=== PATIENT | female | born 1945 | race Caucasian/White ===

== ENCOUNTER 2019-09-05 01:05 | Inpatient (IN) | payer MEDICARE, MEDICAID ==
[2019-09-05] MEDS ORDERED: Ondansetron PF 4 MG/2 ML Vial ONE (03:33)
[2019-09-05] MEDS ORDERED: Piperacillin/Tazobactam 4.5 GM in Sodium Chloride 0.9% 100 ML IVPB SCH (06:15)
[2019-09-05] MEDS ORDERED: Vancomycin HCl 1 GM in Premix Bag 1 BAG IVPB SCH (06:15)
[2019-09-05] MEDS: Lactated Ringer's 1,000 ML IV SCH (06:20)
[2019-09-05 07:07] LABS: INR-International Normal Ratio 1.1; PTT 30.6 SEC (22.9-36.1); Prothrombin Time 13.9 SEC (12.0-14.7)
--- NOTE | 2019-09-05 07:55 | ULT ---
PRELIMINARY REPORT/[facility]/EMERGENCY AFTER HOURS PROCEDURE PROCEDURE INFORMATION: Exam: US Abdomen Limited, Right Upper Quadrant Exam date and time: 09/05/2019 2:08 AM Clinical history: 74 years old, female; Nausea and vomiting; Abdominal pain; Generalized TECHNIQUE: Imaging protocol: Real-time ultrasound of the abdomen with image documentation. Examination was focused on the right upper quadrant. COMPARISON: No relevant prior studies available. FINDINGS: Liver: Unremarkable liver, no focal abnormality. Gallbladder: Multiple shadowing gallstones within the gallbladder, including an 8 mm stone in the region of the gallbladder neck. Gallbladder is upper range of normal in size, with transverse diameter up to about 3.7 cm. No definite gallbladder wall thickening or pericholecystic fluid. Common bile duct: No biliary dilation, common duct measures 4.2 mm. Pancreas: Visible pancreas unremarkable. Much of the pancreas is obscured by bowel gas. Right kidney: Images of the right kidney show no hydronephrosis. IMPRESSION: 1. Cholelithiasis, see additional details above. 2. No biliary tree dilation. 3. Other findings discussed above. Thank you for allowing us to participate in the care of your patient. Dictated and Authenticated by: Joe Choudhury MD 09/05/2019 2:53 AM Central Time ([place] & [place]) FINAL REPORT EXAM: US Gallbladder RUQ CLINICAL HISTORY: Evaluate for cholecystitis.. COMPARISON: None. FINDINGS: Pancreas: Visualized pancreas has normal echotexture Liver:Normal echotexture Gallbladder: Sonographic evidence of cholelithiasis. No evidence of pericholecystic fluid. Gallbladde r wall is not thickened. Smith's sign:Negative Portal Vein: Patent. Appropriate directional flow Bile ducts: 0.4 cm Right kidney: No hydronephrosis. Right kidney measures 9.1 cm in length. IMPRESSION: This report is in agreement with the preliminary report by [facility]. Sonographic evidence of cholelithiasi s without sonographic evidence cholecystitis. HIDA scan if clinically warranted. Transcribed Date/Time: 09/05/2019 8:02 AM
[2019-09-05] MEDS ORDERED: Ondansetron PF 4 MG/2 ML Vial IVP PRN (08:38)
[2019-09-05] MEDS ORDERED: Acetaminophen 325 MG TAB PO PRN (08:38)
[2019-09-05] MEDS ORDERED: Ondansetron ODT 4 MG TAB PO PRN (08:38)
[2019-09-05] MEDS ORDERED: Bisacodyl 5 MG TAB PO PRN (08:38)
[2019-09-05] MEDS ORDERED: Calcium Carbonate 500 MG ChewTAB PO PRN (08:38)
[2019-09-05] MEDS ORDERED: Labetalol HCl 100 MG/20 ML VIAL SLOW IVP PRN (08:41)
[2019-09-05] MEDS ORDERED: Docusate 100 MG CAP PO PRN (08:41)
[2019-09-05] MEDS ORDERED: Benzonatate 100 MG CAP PO PRN (08:41)
--- NOTE | 2019-09-05 09:15 | RAD ---
SUPINE CHEST: HISTORY: Cough. COMPARISON: 09/04/2019 FINDINGS: Mild cardiomegaly. Streaky atelectasis and/or infiltrate in the left lung base is noted. POS: OFF
[2019-09-05] MEDS ORDERED: Diazepam 5 MG TAB PO SCH (09:32)
[2019-09-05] MEDS: Loratadine 10 MG TAB PO SCH (09:59)
[2019-09-05] MEDS: Divalproex Sodium 250 MG (DR) TAB PO SCH ×3 (09:59→20:19)
[2019-09-05] MEDS: Aspirin 81 mg Enteric Coated Tablet PO SCH (09:59)
[2019-09-05] MEDS: Lisinopril 20 MG TAB PO SCH (09:59)
[2019-09-05] MEDS: Citalopram 20 MG TAB PO SCH (10:00)
[2019-09-05] MEDS: Amlodipine 5 MG TAB PO SCH (10:00)
[2019-09-05] MEDS: Famotidine 20 MG TAB PO SCH ×2 (10:00→20:20)
[2019-09-05] MEDS: Multivit, Therapeutic 1 TAB PO SCH (10:00)
[2019-09-05] MEDS: Heparin 5,000 UNITS/ML VIAL SC SCH ×3 (10:01→20:20)
[2019-09-05] MEDS: Vancomycin HCl 1 GM in Premix Bag 1 BAG IVPB SCH ×2 (12:29→23:05)
[2019-09-05] MEDS: Piperacillin/Tazobactam 3.375 GM in Sodium Chloride 0.9% 100 ML IVPB SCH ×2 (12:30→18:41)
[2019-09-05] MEDS: Fluticasone Propionate Nasal Spray 16 gm Bottle NASAL SCH ×2 (12:31→20:20)
--- NOTE | 2019-09-05 15:56 | PDOC.HHP ---
Hospitalist HPI - History of Present Illness Fever and vomiting History of Present Illness: 74-year-old female with past medical history of advanced dementia, Parkinson's, seizure disorder, hypertension, and hyperlipidemia who is a chronic resident of nursing facility was transferred for fever and vomiting. I find the patient in the medical unit on the morning of 09/05/2019 she is resting in bed breathing comfortably in no acute distress. Patient is able to tell me her name and she knows she is in the state of [place], besides that patient cannot give much accurate history. She states that she was feeling a little upset to her stomach and she was vomiting though she does not recall how many times she was vomiting. Patient denies abdominal pain. Patient denies abdominal pain with fatty meals. Patient was reported of having fever though she does not remember this. Patient does not know the year. Patient does not know how many children she has, though she tells me she believes she has three sons. Patient has listed as a medical power of attorney general being Miss Santana who can be reached at [phone] I have called this number twice and left two voicemails. I will try again tomorrow to make contact with power of attorney general. The patient was found have cholelithiasis though there is no signs of acute cholecystitis. The emergency department physician believes that the patient needed a HIDA scan for cholelithiasis. I do not believe that these are related. The patient has a normal bilirubin, there are no signs of obstructive jaundice. Patient with a CT scan of the abdomen that does not have any acute abdominal pathology. Again there is noted cholelithiasis though there is no signs of acute cholecystitis. There is also diverticulosis without any signs of acute diverticulitis. The patient was found have an elevated WBC count of 17,000. There has been no documented fever while in acute care hospital. The patient wit chest x-ray does demonstrate left-sided infiltrate in this may be a possible source of infection. Patient started on broad-spectrum antibiotics with coverage for healthcare associated pneumonia. UA does not demonstrate any infection. Again I will reach out to power of attorney general tomorrow and try to determine power of attorney general's care in addition to categorization status. Hospitalist ROS - Review of Systems All other systems reviewed; all pertinent +/- noted in HPI/Subj - Medication Medications: Active Medications Generic Name Dose Route Start Last Admin Trade Name Freq PRN Reason Stop Dose Admin Amlodipine Besylate 5 mg 09/05/19 09:00 09/05/19 10:00 Norvasc PO 5 mg DAILY PRACHI Administration Aspirin 81 mg 09/05/19 09:00 09/05/19 09:59 Ecotrin PO 81 mg DAILY PRACHI Administration Citalopram Hydrobromide 20 mg 09/05/19 09:00 09/05/19 10:00 Celexa PO 20 mg DAILY PRACHI Administration Diazepam 5 mg 09/05/19 09:32 09/05/19 12:30 Valium PO 09/05/19 18:00 5 mg WILLCALL PRACHI Administration Divalproex Sodium 125 mg 09/05/19 09:00 09/05/19 09:59 Depakote PO 125 mg TID PRACHI Administration Famotidine 20 mg 09/05/19 09:00 09/05/19 10:00 Pepcid PO 20 mg BID PRACHI Administration Fluticasone Propionate 0 gm 09/05/19 09:00 09/05/19 12:31 Flonase Nasal [place] NASAL 1 spr BID PRACHI Administration Heparin Sodium (Porcine) 5,000 units 09/05/19 09:00 09/05/19 10:01 Heparin SC Not Given TID PRACHI Lactated Ringer's 1,000 mls @ 50 mls/hr 09/05/19 06:15 09/05/19 06:20 Lactated Ringer's IV 1,000 mls .Q20H PRACHI Administration Piperacillin Sod/Tazobactam 100 mls @ 200 mls/hr 09/05/19 12:00 09/05/19 12: 30 Sod 3.375 gm/ Sodium Chloride IVPB 100 mls Q6HR PRACHI Administration Vancomycin HCl 1 gm/ Device 200 mls @ 200 mls/hr 09/05/19 11:00 09/05/19 12: 29 IVPB 200 mls 1100,2300 PRACHI Administration Lisinopril 20 mg 09/05/19 09:00 09/05/19 09:59 Zestril PO 20 mg DAILY PRACHI Administration Loratadine 10 mg 09/05/19 09:00 09/05/19 09:59 Claritin PO 10 mg DAILY PRACHI Administration Memantine 10 mg 09/05/19 09:00 09/05/19 10:00 Namenda PO 10 mg BID PRACHI Administration Multivitamins 1 tab 09/05/19 09:00 09/05/19 10:00 Theragran PO 1 tab DAILY PRACHI Administration Hospitalist History - Past Medical History Source: patient Cardiac: reports: HTN, Hyperlipidemia [employer]TERN [employer]PERVISOR: reports: Dementia, Seizure, Other (parkinsons) - Past Surgical History Past Surgical History: reports: Other - Family History Family History: reports: Other - Social History Smoking Status: Unknown if ever smoked Alcohol: reports: None Drugs: reports: none Living Situation: Residential - Exam General Appearance: NAD, awake alert Eye: PERRL, anicteric sclera ENT: normocephalic atraumatic, moist mucosa Neck: supple, symmetric, no lymphadenopathy Heart: no murmur, no gallops, no rubs Respiratory: no rales, normal chest expansion, no tachypnea, rhonchi, wheezes Gastrointestinal: soft, non-tender, non-distended, normal bowel sounds, no guarding, no rigidity Extremities: no edema Skin: no lesions, no rashes Neurological: cranial nerve grossly intact, normal sensation to touch, no focal deficits Musculoskeletal: generalized weakness Psychiatric: oriented to person, flat affect. negative: oriented to place, oriented to time Hospitalist Results - Radiology Interpretation CT scan - abdomen Status: image reviewed by ak Hospitalist H&P A/P - Problem (1) Sepsis Code(s): A41.9 - SEPSIS, UNSPECIFIED ORGANISM Status: Acute (2) Pneumonia Code(s): J18.9 - PNEUMONIA, UNSPECIFIED ORGANISM Status: Acute (3) Cholelithiasis Code(s): K80.20 - CALCULUS OF GALLBLADDER W/O CHOLECYSTITIS W/O OBSTRUCTION Status: Acute (4) Dementia Code(s): F03.90 - UNSPECIFIED DEMENTIA WITHOUT BEHAVIORAL DISTURBANCE Status: Acute (5) Parkinsons disease Code(s): G20 - PARKINSON'S DISEASE Status: Acute (6) HTN (hypertension) Code(s): I10 - ESSENTIAL (PRIMARY) HYPERTENSION Status: Acute (7) HLD (hyperlipidemia) Code(s): E78.5 - HYPERLIPIDEMIA, UNSPECIFIED Status: Acute (8) Vomiting Code(s): R11.10 - VOMITING, UNSPECIFIED Status: Acute - Plan Plan: Plan: Admit to medical unit start on broad-spectrum IV antibiotics for sepsis coverage for healthcare associated organisms as the patient is a resident of nursing facility concern for healthcare associated pneumonia CT scan of the abdomen with cholelithiasis however there are no signs of acute cholecystitis HIDA scan was ordered by the emergency department physician Bilirubin normal, no signs of obstructive jaundice nausea and vomiting has resolved chest x-ray with infiltrates resume home medications as able blood pressure control blood sugar control Called POA Mrs Santana twice at [phone], two voicemail were left. Will call again tomorrow for further goals of care and code status.
--- NOTE | 2019-09-05 16:38 | NM ---
Exam: Nuclear medicine HIDA scan HISTORY: Suspected cholecystitis. Comparison: None Patient was pretreated with 1.6 mcg CCK which was administered 30 minutes prior to injection of radio pharmaceutical. The 20 minute infusion of 1.6 mcg CCK diluted to 20 mL administered 1 hour post injection of radiopharmaceutical to determine EF. HIDA scan was performed after the patient administe red 4.9 mm of technetium 99m mebrofenin FINDINGS: There is appropriate uptake of the radiotracer by the hepatic parenchyma. There is passage of radiotracer from the common bile duct into multiple small bowel loops. Localization radiotracer in the gallbladder is noted as early as 10 minutes. Ejection fraction: 50% IMPRESSION: 1. No scintigraphic evidence of acute cholecystitis 2. 50% ejection fraction Transcribed Date/Time: 09/05/2019 4:45 PM
[2019-09-05] MEDS: Rivastigmine 1.5 MG CAP PO SCH (17:28)
[2019-09-05] MEDS: Mirtazapine 15 MG TAB PO SCH (20:20)
[2019-09-06] MEDS: Piperacillin/Tazobactam 3.375 GM in Sodium Chloride 0.9% 100 ML IVPB SCH ×5 (00:27→22:52)
[2019-09-06] MEDS: Levothyroxine Sodium 25 MCG TAB PO SCH (05:41)
[2019-09-06] MEDS: Lactated Ringer's 1,000 ML IV SCH ×2 (05:42→17:41)
[2019-09-06 05:44] LABS: #Eosinphils 0.3 thou/uL (0.0-0.7); #Lymphocytes 1.1 thou/uL (1.20-3.40); #Monocytes 0.6 thou/uL (0.11-0.59); #Neutrophils 3.5 thou/uL (1.40-6.50); %Basophils 0.4 % (0.0-1.0); %Eosinophils 4.8 % (0.0-10.0); %Lymphocytes 20.4 % (21.0-51.0); %Monocytes 10.6 % (0.0-10.0); %Neutrophils 63.9 % (42.0-75.0); Hemoglobin 11.5 g/dL (12.0-16.0); Mean Corpuscular HGB CONC 33.4 g/dL (32.0-36.0); Mean Corpuscular Hemoglobin 32.3 pg (27.0-31.0); Mean Corpuscular Volume 96.7 fL (78.0-98.0); Mean Platelet Volume 7.8 fL (7.4-10.4); Platelet Count 196 thou/uL (130-400); RBC Distribution Width 11.8 % (11.5-14.5); Red Blood Cell (RBC) Count 3.57 mill/uL (4.20-5.40); White Blood Cell (WBC) Count 5.5 thou/uL (4.8-10.8)
[2019-09-06 06:50] LABS: Anion Gap 11 mmol/L (10-20); BUN (Urea Nitrogen) 11 mg/dL (9.8-20.1); Calc. Creatinine Clearance 83 mL/min (70-130); Calcium 8.4 mg/dL (7.8-10.44); Carbon Dioxide 23 mmol/L (23-31); Chloride 113 mmol/L (98-107); Estimated GFR-MDRD 78; Glucose 92 mg/dL (83-110); Potassium 3.6 mmol/L (3.5-5.1); Sodium 143 mmol/L (136-145)
[2019-09-06] MEDS: Loratadine 10 MG TAB PO SCH (10:09)
[2019-09-06] MEDS: Rivastigmine 1.5 MG CAP PO SCH ×2 (10:09→17:37)
[2019-09-06] MEDS: Lisinopril 20 MG TAB PO SCH (10:09)
[2019-09-06] MEDS: Fluticasone Propionate Nasal Spray 16 gm Bottle NASAL SCH ×2 (10:10→20:02)
[2019-09-06] MEDS: Multivit, Therapeutic 1 TAB PO SCH (10:10)
[2019-09-06] MEDS: Amlodipine 5 MG TAB PO SCH (10:15)
[2019-09-06] MEDS: Aspirin 81 mg Enteric Coated Tablet PO SCH (10:16)
[2019-09-06] MEDS: Divalproex Sodium 250 MG (DR) TAB PO SCH ×3 (10:16→20:01)
[2019-09-06] MEDS: Citalopram 20 MG TAB PO SCH (10:19)
[2019-09-06] MEDS: Heparin 5,000 UNITS/ML VIAL SC SCH ×3 (10:19→20:01)
[2019-09-06 10:27] LABS: Vancomycin, Trough 14.1 ug/mL
[2019-09-06] MEDS ORDERED: Prevnar 13-Val Conj/PF 0.5 ML SYRINGE IM ONE (10:45)
[2019-09-06] MEDS: Famotidine 20 MG TAB PO SCH ×2 (11:13→20:01)
[2019-09-06 11:50] LABS: Bilirubin Negative (Negative); Blood, Urine 1+ (Negative); Clarity Clear (Clear); Glucose, Urine (Dipstick) Normal (Negative); Leukocyte Negative Leu/uL (Negative); Nitrite Negative (Negative); Protein, Urine (Dipstick) Negative (Neg-Trace); RBC/HPF 21-50 HPF (0-3); Urobilinogen Normal mg/dL (Less than 2)
[2019-09-06 11:55] LABS: Bacteria/HPF 1+ HPF (None Seen)
[2019-09-06 11:57] LABS: Urine Culture Reflex No No
[2019-09-06] MEDS: Vancomycin HCl 1.25 GM in Sodium Chloride 0.9% 250 ML 250 ML IVPB SCH ×2 (12:39→22:53)
--- NOTE | 2019-09-06 12:40 | MRI ---
MRI BRAIN WITHOUT CONTRAST: HISTORY: Weakness COMPARISON: None CORRELATION: CT scan from 09/04/2019. FINDINGS: No restricted diffusion is seen. There are few foci of T2 prolongation in the periventricular white m atter, consistent with chronic small vessel ischemic disease. The ventricular size is appropriate and the basilar cisterns are patent. There is cortical atrophy. No evidence of acute infarct, hemorrhage, midline shift or abnormal extra-axial fluid collections is seen. The visualized paranasal sinuses and mastoid air cells are well-aerated. IMPRESSION: No evidence of acute intracranial process.
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
--- NOTE | 2019-09-06 13:43 | PDOC.HOSPP ---
- Subjective Subjective: Clinically unchanged. Nausea and vomiting has resolved is the patient has NPO status. HIDA scan found to be negative. Responding to broad-spectrum IV antibiotics. Discuss case at length with patient's power of finance attorney Esther over the phone who states that she has been concerned over Jillian's decline of the past several months. Decrease mental status capacity to the point where occasionally that he does not recognize Esther. Decrease mental capacity to the point where sometimes she is staring off into space. Jillian has been having worsening ability to swallow over the past several months per Esther and occasionaly coughing with food or drink. Esther also states that Jillian's weakness has been worsening of the past several months to the point where now she is primarily wheelchair-bound. Will order MRI the brain to evaluate for CVA acute versus chronic. Neurology consultation requested for further recommendations. Speech therapy consultation requested for swallow eval, may need to modify diet with thickened liquids versus aspiration precautions. - Objective Vital Signs & Weight: Vital Signs (12 hours) Temp Pulse Resp BP BP Pulse Ox 09/06/19 10:15 58 L 127/73 09/06/19 10:09 127/73 09/06/19 08:00 97.8 F 59 L 18 127/73 92 L 09/06/19 04:29 97.8 F 46 L 16 100/55 L 96 Weight Admit Weight 175 lb 0.752 oz Weight 175 lb 0.752 oz Result Diagrams: 09/06/19 04:59 09/06/19 06:20 Radiology Reviewed by me: Yes (KASSANDRA) Hospitalist ROS - Review of Systems All other systems reviewed; all pertinent +/- noted in HPI/Subj - Medication Medications: Active Medications Generic Name Dose Route Start Last Admin Trade Name Freq PRN Reason Stop Dose Admin Amlodipine Besylate 5 mg 09/05/19 09:00 09/06/19 10:15 Norvasc PO 5 mg DAILY PRACHI Administration Aspirin 81 mg 09/05/19 09:00 09/06/19 10:16 Ecotrin PO 81 mg DAILY PRACHI Administration Citalopram Hydrobromide 20 mg 09/05/19 09:00 09/06/19 10:19 Celexa PO 20 mg DAILY PRACHI Administration Divalproex Sodium 125 mg 09/05/19 09:00 09/06/19 10:16 Depakote PO 125 mg TID PRACHI Administration Famotidine 20 mg 09/05/19 09:00 09/06/19 11:13 Pepcid PO Not Given BID PRACHI Fluticasone Propionate 0 gm 09/05/19 09:00 09/06/19 10:10 Flonase Nasal [place] NASAL 1 spr BID PRACHI Administration Heparin Sodium (Porcine) 5,000 units 09/05/19 09:00 09/06/19 10:19 Heparin SC 5,000 units TID PRACHI Administration Lactated Ringer's 1,000 mls @ 50 mls/hr 09/05/19 06:15 09/06/19 05:42 Lactated Ringer's IV Not Given .Q20H PRACHI Piperacillin Sod/Tazobactam 100 mls @ 200 mls/hr 09/05/19 12:00 09/06/19 12: 52 Sod 3.375 gm/ Sodium Chloride IVPB 100 mls Q6HR PRACHI Administration Vancomycin HCl 1.25 gm/ Sodium 250 mls @ 166.667 mls/hr 09/06/19 11:00 12:39 Chloride IVPB 250 mls 1100,2300 PRACHI Administration Levothyroxine Sodium 12.5 mcg 09/06/19 06:00 09/06/19 05:41 Synthroid PO 12.5 mcg 0600 PRACHI Administration Lisinopril 20 mg 09/05/19 09:00 09/06/19 10:09 Zestril PO 20 mg DAILY PRACHI Administration Loratadine 10 mg 09/05/19 09:00 09/06/19 10:09 Claritin PO 10 mg DAILY PRACHI Administration Memantine 10 mg 09/05/19 09:00 09/06/19 10:09 Namenda PO 10 mg BID PRACHI Administration Mirtazapine 15 mg 09/05/19 21:00 09/05/19 20:20 Remeron PO 15 mg HS PRACHI Administration Multivitamins 1 tab 09/05/19 09:00 09/06/19 10:10 Theragran PO 1 tab DAILY PRACHI Administration Rivastigmine 6 mg 09/05/19 17:00 09/06/19 10:09 Exelon PO 6 mg BID-WM PRACHI Administration - Exam General Appearance: NAD, awake alert Eye: PERRL ENT: normocephalic atraumatic, moist mucosa Neck: supple, symmetric, no lymphadenopathy Heart: no murmur, no gallops, no rubs Respiratory: no rales, normal chest expansion, no tachypnea, rhonchi, wheezes Gastrointestinal: soft, non-tender, non-distended, normal bowel sounds, no guarding, no rigidity Extremities: no edema Skin: no lesions, no rashes Neurological: cranial nerve grossly intact, no weakness Musculoskeletal: generalized weakness Psychiatric: A&O x 3 Hosp A/P (1) Sepsis Code(s): A41.9 - SEPSIS, UNSPECIFIED ORGANISM Status: Acute (2) Pneumonia Code(s): J18.9 - PNEUMONIA, UNSPECIFIED ORGANISM Status: Acute (3) Cholelithiasis Code(s): K80.20 - CALCULUS OF GALLBLADDER W/O CHOLECYSTITIS W/O OBSTRUCTION Status: Acute (4) Dementia Code(s): F03.90 - UNSPECIFIED DEMENTIA WITHOUT BEHAVIORAL DISTURBANCE Status: Acute (5) Parkinsons disease Code(s): G20 - PARKINSON'S DISEASE Status: Acute (6) HTN (hypertension) Code(s): I10 - ESSENTIAL (PRIMARY) HYPERTENSION Status: Acute (7) HLD (hyperlipidemia) Code(s): E78.5 - HYPERLIPIDEMIA, UNSPECIFIED Status: Acute (8) Vomiting Code(s): R11.10 - VOMITING, UNSPECIFIED Status: Acute - Plan Plan: medical unit neurology consultation, recommendations appreciated MRI the brain reviewed, no acute intracranial process clinical diagnosis of Parkinson's disease per neurology start Sinemet per neurology concerning patient's cholelithiasis there is no signs suggestive of cholecystitis and HIDA scan has been negative, no further workup needed at this time speech therapy consultation, recommendations appreciated patient's diet may require modifications with aspiration precautions versus thickening to limit future episodes of aspiration continue broad-spectrum IV antibiotics, de-escalate to culture and sensitivity as able Blood cultures UA/ culture pending symptomatic therapy for nausea and vomiting chest x-ray with infiltrates resume home medications as able blood pressure control blood sugar control discussed case with power of finance attorney Ms. Santana at [phone] who states patient is a DNAR/ DNI - we will honor their wishes
[2019-09-06] MEDS: Carbidopa/Levodopa 25-100 mg Tablet PO SCH ×3 (14:43→18:27)
[2019-09-06] MEDS: diphenhydrAMINE 25 MG CAP PO PRN (20:01)
[2019-09-06] MEDS: Mirtazapine 15 MG TAB PO SCH (20:01)
[2019-09-07] MEDS: Carbidopa/Levodopa 25-100 mg Tablet PO SCH ×4 (06:09→18:20)
[2019-09-07] MEDS: Piperacillin/Tazobactam 3.375 GM in Sodium Chloride 0.9% 100 ML IVPB SCH ×4 (06:09→22:46)
[2019-09-07] MEDS: Levothyroxine Sodium 25 MCG TAB PO SCH (06:09)
[2019-09-07] MEDS: Aspirin 81 mg Enteric Coated Tablet PO SCH (09:08)
[2019-09-07] MEDS: Citalopram 20 MG TAB PO SCH (09:09)
[2019-09-07] MEDS: Multivit, Therapeutic 1 TAB PO SCH (09:09)
[2019-09-07] MEDS: Divalproex Sodium 250 MG (DR) TAB PO SCH ×3 (09:09→19:36)
[2019-09-07] MEDS: Loratadine 10 MG TAB PO SCH (09:09)
[2019-09-07] MEDS: Lisinopril 20 MG TAB PO SCH (09:11)
[2019-09-07] MEDS: Amlodipine 5 MG TAB PO SCH (09:11)
[2019-09-07] MEDS: Famotidine 20 MG TAB PO SCH ×2 (09:11→19:36)
[2019-09-07] MEDS: Heparin 5,000 UNITS/ML VIAL SC SCH ×3 (09:12→19:13)
[2019-09-07] MEDS: Fluticasone Propionate Nasal Spray 16 gm Bottle NASAL SCH ×2 (09:14→19:36)
[2019-09-07] MEDS: Rivastigmine 1.5 MG CAP PO SCH ×2 (09:14→18:20)
[2019-09-07] MEDS: Vancomycin HCl 1.25 GM in Sodium Chloride 0.9% 250 ML 250 ML IVPB SCH ×2 (10:58→22:46)
[2019-09-07] MEDS: Lactated Ringer's 1,000 ML IV SCH (18:27)
[2019-09-07] MEDS: diphenhydrAMINE 25 MG CAP PO PRN (19:35)
[2019-09-07] MEDS: Mirtazapine 15 MG TAB PO SCH (19:36)
[2019-09-07] MEDS: Melatonin 3 MG TAB PO PRN (19:36)
[2019-09-07 22:28] LABS: Vancomycin, Trough 17.9 ug/mL
--- NOTE | 2019-09-07 22:52 | PDOC.HOSPP ---
- Subjective Subjective: Denies problems. Nursing indicate she has been trying to get up out of bed at times. - Objective Vital Signs & Weight: Vital Signs (12 hours) Temp Pulse Resp BP Pulse Ox 09/07/19 20:00 97.4 F L 77 18 158/86 H 96 09/07/19 16:14 98.2 F 66 18 171/92 H 96 09/07/19 11:03 98.4 F 74 18 159/87 H 98 Weight Admit Weight 175 lb 0.752 oz Weight 175 lb 0.752 oz I&O: 09/06/19 09/07/19 09/08/19 06:59 06:59 06:59 Intake Total 1400 Output Total 3 Balance 1397 Result Diagrams: 09/06/19 04:59 09/06/19 06:20 Hospitalist ROS - Medication Medications: Active Medications Generic Name Dose Route Start Last Admin Trade Name Freq PRN Reason Stop Dose Admin Amlodipine Besylate 5 mg 09/05/19 09:00 09/07/19 09:11 Norvasc PO 5 mg DAILY PRACHI Administration Aspirin 81 mg 09/05/19 09:00 09/07/19 09:08 Ecotrin PO 81 mg DAILY PRACHI Administration Carbidopa/Levodopa 1 tab 09/06/19 11:00 09/07/19 18:20 Sinemet 25-100 PO 1 tab 0700,1100,1500,1900 PRACHI Administration Citalopram Hydrobromide 20 mg 09/05/19 09:00 09/07/19 09:09 Celexa PO 20 mg DAILY PRACHI Administration Diphenhydramine HCl 25 mg 09/05/19 08:41 09/07/19 19:35 Benadryl PO 25 mg Q6H PRN Administration Itching & Insomnia Divalproex Sodium 125 mg 09/05/19 09:00 09/07/19 19:36 Depakote PO 125 mg TID PRACHI Administration Famotidine 20 mg 09/05/19 09:00 09/07/19 19:36 Pepcid PO 20 mg BID PRACHI Administration Fluticasone Propionate 0 gm 09/05/19 09:00 09/07/19 19:36 Flonase Nasal [place] NASAL Not Given BID PRACHI Heparin Sodium (Porcine) 5,000 units 09/05/19 09:00 09/07/19 19:13 Heparin SC Not Given TID PRACHI Lactated Ringer's 1,000 mls @ 50 mls/hr 09/05/19 06:15 09/07/19 18:27 Lactated Ringer's IV Not Given .Q20H PRACHI Piperacillin Sod/Tazobactam 100 mls @ 200 mls/hr 09/05/19 12:00 09/07/19 22: 46 Sod 3.375 gm/ Sodium Chloride IVPB 100 mls Q6HR PRACHI Administration Vancomycin HCl 1.25 gm/ Sodium 250 mls @ 166.667 mls/hr 09/06/19 11:00 22:46 Chloride IVPB 250 mls 1100,2300 PRACHI Administration Levothyroxine Sodium 12.5 mcg 09/06/19 06:00 09/07/19 06:09 Synthroid PO 12.5 mcg 0600 PRACHI Administration Lisinopril 20 mg 09/05/19 09:00 09/07/19 09:11 Zestril PO 20 mg DAILY PRACHI Administration Loratadine 10 mg 09/05/19 09:00 09/07/19 09:09 Claritin PO 10 mg DAILY PRACHI Administration Melatonin 3 mg 09/05/19 08:41 09/07/19 19:36 Melatonin PO 3 mg HS PRN Administration Insomnia Memantine 10 mg 09/05/19 09:00 09/07/19 19:36 Namenda PO 10 mg BID PRACHI Administration Mirtazapine 15 mg 09/05/19 21:00 09/07/19 19:36 Remeron PO 15 mg HS PRACHI Administration Multivitamins 1 tab 09/05/19 09:00 09/07/19 09:09 Theragran PO 1 tab DAILY PRACHI Administration Rivastigmine 6 mg 09/05/19 17:00 09/07/19 18:20 Exelon PO 6 mg BID-WM PRACHI Administration - Exam General Appearance: NAD, awake alert Heart: RRR, no murmur, no gallops, no rubs, normal peripheral pulses Respiratory: CTAB, no wheezes, no rales, no ronchi, normal chest expansion, no tachypnea, normal percussion Gastrointestinal: soft, non-tender, non-distended, normal bowel sounds, no palpable masses, no hepatomegaly, no splenomegaly, no bruit Extremities: no cyanosis, no clubbing, no edema Neurological: no focal deficits Musculoskeletal: normal tone Psychiatric - other findings: FLat affect. Hosp A/P (1) Dementia Code(s): F03.90 - UNSPECIFIED DEMENTIA WITHOUT BEHAVIORAL DISTURBANCE Status: Acute (2) HLD (hyperlipidemia) Code(s): E78.5 - HYPERLIPIDEMIA, UNSPECIFIED Status: Acute (3) HTN (hypertension) Code(s): I10 - ESSENTIAL (PRIMARY) HYPERTENSION Status: Acute (4) Parkinsons disease Code(s): G20 - PARKINSON'S DISEASE Status: Acute (5) Pneumonia Code(s): J18.9 - PNEUMONIA, UNSPECIFIED ORGANISM Status: Acute (6) Cholelithiasis Code(s): K80.20 - CALCULUS OF GALLBLADDER W/O CHOLECYSTITIS W/O OBSTRUCTION Status: Acute (7) Sepsis Code(s): A41.9 - SEPSIS, UNSPECIFIED ORGANISM Status: Acute (8) Vomiting Code(s): R11.10 - VOMITING, UNSPECIFIED Status: Acute - Plan GB work up negative. Continue IV abx for pneumonia. Seems to be doing well with the Sinemet. Anticipate transition to po and discharge tomorrow.
[2019-09-08] MEDS: Piperacillin/Tazobactam 3.375 GM in Sodium Chloride 0.9% 100 ML IVPB SCH (05:08)
[2019-09-08] MEDS: Carbidopa/Levodopa 25-100 mg Tablet PO SCH ×4 (05:08→18:09)
[2019-09-08] MEDS: Levothyroxine Sodium 25 MCG TAB PO SCH (05:08)
[2019-09-08] MEDS: Lisinopril 20 MG TAB PO SCH (10:23)
[2019-09-08] MEDS: Amlodipine 5 MG TAB PO SCH (10:24)
[2019-09-08] MEDS: Aspirin 81 mg Enteric Coated Tablet PO SCH (10:24)
[2019-09-08] MEDS: Divalproex Sodium 250 MG (DR) TAB PO SCH ×3 (10:24→20:01)
[2019-09-08] MEDS: Multivit, Therapeutic 1 TAB PO SCH (10:24)
[2019-09-08] MEDS: Loratadine 10 MG TAB PO SCH (10:24)
[2019-09-08] MEDS: Heparin 5,000 UNITS/ML VIAL SC SCH ×3 (10:25→19:19)
[2019-09-08] MEDS: Famotidine 20 MG TAB PO SCH ×2 (10:25→20:01)
[2019-09-08] MEDS: Fluticasone Propionate Nasal Spray 16 gm Bottle NASAL SCH ×2 (10:26→19:43)
[2019-09-08] MEDS: Rivastigmine 1.5 MG CAP PO SCH ×2 (10:28→18:09)
[2019-09-08] MEDS: Citalopram 20 MG TAB PO SCH (11:37)
[2019-09-08] MEDS: Lactated Ringer's 1,000 ML IV SCH (15:23)
--- NOTE | 2019-09-08 15:51 | PDOC.HOSPP ---
- Subjective Subjective: Sleepy today. Apparently had some benadryl last night. Has been getting out of bed. Walked to the bathroom. - Objective Vital Signs & Weight: Vital Signs (12 hours) Temp Pulse Resp BP BP Pulse Ox 09/08/19 10:24 70 176/93 H 09/08/19 10:23 176/93 H 09/08/19 08:00 97.9 F 70 16 176/93 H 94 L Weight Admit Weight 175 lb 0.752 oz Weight 175 lb 0.752 oz I&O: 09/07/19 09/08/19 09/09/19 06:59 06:59 05:59 Intake Total 1400 Output Total 3 Balance 1397 Result Diagrams: 09/06/19 04:59 09/06/19 06:20 Hospitalist ROS - Medication Medications: Active Medications Generic Name Dose Route Start Last Admin Trade Name Freq PRN Reason Stop Dose Admin Amlodipine Besylate 5 mg 09/05/19 09:00 09/08/19 10:24 Norvasc PO 5 mg DAILY PRACHI Administration Aspirin 81 mg 09/05/19 09:00 09/08/19 10:24 Ecotrin PO 81 mg DAILY PRACHI Administration Carbidopa/Levodopa 1 tab 09/06/19 11:00 09/08/19 15:12 Sinemet 25-100 PO 1 tab 0700,1100,1500,1900 PRACHI Administration Diphenhydramine HCl 25 mg 09/05/19 08:41 09/07/19 19:35 Benadryl PO 25 mg Q6H PRN Administration Itching & Insomnia Divalproex Sodium 125 mg 09/05/19 09:00 09/08/19 15:11 Depakote PO 125 mg TID PRACHI Administration Famotidine 20 mg 09/05/19 09:00 09/08/19 10:25 Pepcid PO 20 mg BID PRACHI Administration Fluticasone Propionate 0 gm 09/05/19 09:00 09/08/19 10:26 Flonase Nasal [place] NASAL 1 spr BID PRACHI Administration Heparin Sodium (Porcine) 5,000 units 09/05/19 09:00 09/08/19 15:15 Heparin SC 5,000 units TID PRACHI Administration Lactated Ringer's 1,000 mls @ 50 mls/hr 09/05/19 06:15 09/08/19 15:23 Lactated Ringer's IV 1,000 mls .Q20H PRACHI Administration Levothyroxine Sodium 12.5 mcg 09/06/19 06:00 09/08/19 05:08 Synthroid PO 12.5 mcg 0600 PRACHI Administration Lisinopril 20 mg 09/05/19 09:00 09/08/19 10:23 Zestril PO 20 mg DAILY PRACHI Administration Loratadine 10 mg 09/05/19 09:00 09/08/19 10:24 Claritin PO 10 mg DAILY PRACHI Administration Melatonin 3 mg 09/05/19 08:41 09/07/19 19:36 Melatonin PO 3 mg HS PRN Administration Insomnia Memantine 10 mg 09/05/19 09:00 09/08/19 10:24 Namenda PO 10 mg BID PRACHI Administration Mirtazapine 15 mg 09/05/19 21:00 09/07/19 19:36 Remeron PO 15 mg HS PRACHI Administration Multivitamins 1 tab 09/05/19 09:00 09/08/19 10:24 Theragran PO 1 tab DAILY PRACHI Administration Rivastigmine 6 mg 09/05/19 17:00 09/08/19 10:28 Exelon PO 6 mg BID-WM PRACHI Administration - Exam General Appearance: NAD General - other findings: Sleepy. Awakens. Denies problems. Heart: RRR, no gallops, no rubs, normal peripheral pulses, II/IV Respiratory: CTAB, no wheezes, no rales, no ronchi, normal chest expansion, no tachypnea, normal percussion Gastrointestinal: soft, non-tender, non-distended, normal bowel sounds, no palpable masses, no hepatomegaly, no splenomegaly, no bruit Skin: normal turgor Musculoskeletal: generalized weakness Psychiatric: somnolent Hosp A/P (1) Sepsis Code(s): A41.9 - SEPSIS, UNSPECIFIED ORGANISM Status: Resolved (2) Pneumonia Code(s): J18.9 - PNEUMONIA, UNSPECIFIED ORGANISM Status: Acute (3) HTN (hypertension) Code(s): I10 - ESSENTIAL (PRIMARY) HYPERTENSION Status: Acute (4) Parkinsons disease Code(s): G20 - PARKINSON'S DISEASE Status: Acute (5) HLD (hyperlipidemia) Code(s): E78.5 - HYPERLIPIDEMIA, UNSPECIFIED Status: Chronic (6) Cholelithiasis Code(s): K80.20 - CALCULUS OF GALLBLADDER W/O CHOLECYSTITIS W/O OBSTRUCTION Status: Acute (7) Vomiting Code(s): R11.10 - VOMITING, UNSPECIFIED Status: Resolved (8) Dementia Code(s): F03.90 - UNSPECIFIED DEMENTIA WITHOUT BEHAVIORAL DISTURBANCE Status: Chronic - Plan GB work up negative. Change to po abx. Nurse spoke with the patient's surrogate who was surprised to hear that she was walking because she has typically been wheelchair bound. Seems to be doing well with the Sinemet. May have made her more animated. She has been easily re-directed, but CM spoke with NH and they indicate she is not typically trying to get out of bed. Again, may be more animated by the sinemet. May be some sundowning. Continue to monitor for now. If she does not improve, may need to wean back on the sinemet.
[2019-09-08] MEDS: diphenhydrAMINE 25 MG CAP PO PRN (20:01)
[2019-09-08] MEDS: Mirtazapine 15 MG TAB PO SCH (20:01)
[2019-09-08] MEDS: Melatonin 3 MG TAB PO PRN (20:01)
[2019-09-09] MEDS: Levothyroxine Sodium 25 MCG TAB PO SCH (05:23)
[2019-09-09] MEDS: Carbidopa/Levodopa 25-100 mg Tablet PO SCH ×2 (05:23→11:11)
[2019-09-09] MEDS: Rivastigmine 1.5 MG CAP PO SCH (08:18)
[2019-09-09] MEDS: Famotidine 20 MG TAB PO SCH (08:20)
[2019-09-09] MEDS: Loratadine 10 MG TAB PO SCH (08:21)
[2019-09-09] MEDS: Lisinopril 20 MG TAB PO SCH (08:21)
[2019-09-09] MEDS: Amlodipine 5 MG TAB PO SCH (08:21)
[2019-09-09] MEDS: Multivit, Therapeutic 1 TAB PO SCH (08:21)
[2019-09-09] MEDS: Divalproex Sodium 250 MG (DR) TAB PO SCH (08:22)
[2019-09-09] MEDS: Heparin 5,000 UNITS/ML VIAL SC SCH (08:23)
[2019-09-09] MEDS: Aspirin 81 mg Enteric Coated Tablet PO SCH (08:23)
[2019-09-09] MEDS: Fluticasone Propionate Nasal Spray 16 gm Bottle NASAL SCH (08:23)
[2019-09-09] MEDS ORDERED: Citalopram 10 MG TAB PO SCH (09:00)
[2019-09-09 14:19] VITALS: BP 158/83; TEMP 98.7
--- NOTE | 2019-09-10 09:22 | DIS ---
DATE OF ADMISSION: 09/05/2019 DATE OF DISCHARGE: 09/09/2019 DISCHARGE DIAGNOSES: 1. Sepsis. 2. Pneumonia. 3. Vomiting. 4. Cholelithiasis without evidence of cholecystitis. 5. Parkinson disease. 6. Dementia. 7. Hypertension. 8. Hyperlipidemia. HISTORY OF PRESENT ILLNESS: This patient is a 74-year-old female, who lives in a nursing facility. The patient was brought to the hospital with fever and vomiting. She appeared to be in no significant distress. On her initial workup, initial white count was 17.3. Her chest x-ray showed no acute cardiopulmonary abnormalities. CT of the brain was obtained which was unremarkable. Abdomen and pelvis CT revealed no acute abnormalities. Cholelithiasis was present. There was some colonic diverticulosis without diverticulitis. The patient was admitted to the hospital. HOSPITAL COURSE: The patient was admitted to the hospital with nausea, vomiting , and fever concerning for aspiration type pneumonia. She was started on appropriate antibiotics. She subsequently had a repeat chest x-ray, which showed streaky atelectasis or infiltrate in the left lung base. She had abdominal ultrasound, which show cholelithiasis with no evidence of acute cholecystitis. HIDA scan was obtained, which revealed no scintigraphic evidence of acute cholecystitis. An ejection fraction of 50%. A subsequent MRI of the brain was obtained, revealing no evidence of any acute intracranial process. She was seen in consultation by Neurology, who felt the patient had an evidence of Parkinson disease. She had tremors, bradykinesia, and generalized rigidity. She was started on Sinemet. She appeared to respond generally well to that. The tremor improved. Blood and urine cultures remained negative. Nausea and vomiting resolved. She was ultimately switched over to p.o. antibiotics and felt to be stable for discharge. However , at that time, the patient had become a bit more animated and was getting up out of bed on her own. She had a sitter, but was easily redirected and not agitated. By the end of the day, she was no longer requiring any supervision and appeared to be back to her baseline. It was thought that she might have become more animated with the treatment of the Parkinson disease. She ultimately was felt to be stable for discharge back to her nursing facility. Of note, she was evaluated by Physical therapy while here in the hospital and she was able to ambulate about 40 feet with a rolling walker and Physical Therapy was recommended. PHYSICAL EXAMINATION: On the day of discharge, VITAL SIGNS: Temperature 98.6, pulse 67, BP is 150/87, O2 saturations 96% on room air. GENERAL APPEARANCE: Age-appropriate female. She is awake, calm, pleasant. HEART: Regular rate and rhythm without murmurs. LUNGS: Clear bilaterally. ABDOMEN: Soft and nontender. EXTREMITIES: No edema. NEUROLOGIC: She is relatively appropriate and calm. She has no significant tremor noted. DISPOSITION: The patient is discharged back to the [facility]. ACTIVITY: As tolerated. DIET: She will stay on a regular mechanical soft diet with ground meats and no breads. She will have nectar thick liquids based on recommendations of our speech pathologist. She will have physical therapy recommended for her. DISCHARGE MEDICATIONS: She will continue on, 1. Sinemet 1 p.o. q.i.d. 2. Levofloxacin 500 mg daily. She will continue with, 1. Exelon. 2. Multivitamin. 3. Tylenol. 4. Remeron. 5. Amino acids (Pro-Stat). 6. Namenda. 7. Claritin. 8. Zestril. 9. Synthroid. 10. Flonase. 11. Feosol. 12. Depakote. 13. Celexa. 14. Aspirin. 15. Arginaid. 16. Norvasc. FOLLOWUP: She will have follow up with Dr. Cooper in [place]. She can return to the hospital should she have any problems and have the need to do so. Time spent in discharge activity was 38 min. Job ID: [id number] MTDD
== END 2019-09-09 14:11 | disposition home or self-care (01) | DRG 871 ==
LOC: ERS 01:05 → T4-B 05:59
PROVIDERS: ADMIT Family Medicine; ATTEND Family Medicine
DX: A41.9 Sepsis, unspecified organism (principal); J18.9 Pneumonia, unspecified organism; R11.10 Vomiting, unspecified; K80.20 Calculus of gallbladder without cholecystitis without obstruction; G20 Parkinson's disease; F02.80 Dementia in other diseases classified elsewhere, unspecified severity, without behavioral disturbance, psychotic disturbance, mood disturbance, and anxiety; I10 Essential (primary) hypertension; E78.5 Hyperlipidemia, unspecified; K57.30 Diverticulosis of large intestine without perforation or abscess without bleeding; Z96.7 Presence of other bone and tendon implants; G40.909 Epilepsy, unspecified, not intractable, without status epilepticus; F41.9 Anxiety disorder, unspecified
CPT/HCPCS: 36415; 70551; 71045; 76705; 78227; 80048; 80202; 81001; 84145; 85025; 85610; 85730; 87040; 87086; 96374; A9537; J1644; J2405; J2543; J3370; J3490; J7050; Q0163